=== PATIENT | female | born 1945 | race Caucasian/White ===

== ENCOUNTER 2016-12-25 23:40 | Emergency (ER) | payer MEDICARE, BC ==
--- NOTE | 2016-12-26 00:10 | EDM.PDOC ---
ED HPI GENERAL MEDICAL PROBLEM - General Chief Complaint: Abdominal Pain Stated Complaint: Upper abdominal pain Time Seen by Provider: 12/25/16 23:50 Source of Information: Reports: Patient History Limitations: Reports: No Limitations - History of Present Illness INITIAL COMMENTS - FREE TEXT/NARRATIVE: Patient reports upper abdominal pain after eating since early November. She notes that it only happens after eating, usually 1-2 hours after eating. She tells me that the pain is in the upper abdomen from the right to left side including mid epigastric. Describes it as a pressure. She denies any history of GERD or ulcers. Medical history includes HTN, hypercholesterolemia, stroke in 2008 with residual reduction of peripheral vision to both eyes. She denies [place], cancer, denies any COPD, asthma. She has had kidney stones in the past. No smoking, drinking, or drug use. She denies LOC, chest pain, SOB, no headache, blood in urine or stool. No fever or chills. Onset: Other (chronic since November) Duration: Chronic Location: Reports: Abdomen Quality: Reports: Pressure, Same as Previous Episode Severity: Moderate Worsens with: Reports: Eating Associated Symptoms: Reports: Nausea/Vomiting Upper abdomen, epigastric Pain Score (Numeric/FACES): 3 - Related Data Allergies Allergy/AdvReac Type Severity Reaction Status Date / Time No Known Allergies Allergy Verified 12/09/14 09:49 Home Meds: Home Meds Cholecalciferol (Vitamin D3) [Vitamin D3] 1,000 units PO DAILY 12/01/14 [History ] Lisinopril [Lisinopril] 20 mg PO DAILY 12/01/14 [History] Spironolactone [Aldactone] 75 mg PO DAILY 12/01/14 [History] Social & Family History - Tobacco Use Smoking Status *Q: Never Smoker Second Hand Smoke Exposure: Yes - Recreational Drug Use Recreational Drug Use: No Drug Use in Last 12 Months: No ED ROS GENERAL - Review of Systems Review Of Systems: See Below Constitutional: Reports: No Symptoms HEENT: Reports: No Symptoms Respiratory: Reports: No Symptoms Cardiovascular: Reports: No Symptoms Endocrine: Reports: No Symptoms GI/Abdominal: Reports: Abdominal Pain, Nausea : Reports: No Symptoms Musculoskeletal: Reports: No Symptoms Skin: Reports: No Symptoms Neurological: Reports: No Symptoms Psychiatric: Reports: No Symptoms Hematologic/Lymphatic: Reports: No Symptoms Immunologic: Reports: No Symptoms ED EXAM, GI/ABD - Physical Exam Exam: See Below Exam Limited By: No Limitations General Appearance: Alert, WD/WN, No Apparent Distress Eyes: Bilateral: EOMI Ears: Normal TMs Throat/Mouth: Normal Inspection, Normal Oropharynx Head: Atraumatic, Normocephalic Neck: Normal Inspection, Supple, Non-Tender, Full Range of Motion Respiratory/Chest: No Respiratory Distress, Lungs Clear, Normal Breath Sounds, No Accessory Muscle Use, Chest Non-Tender Cardiovascular: Normal Peripheral Pulses, Regular Rate, Rhythm, No Edema, No Gallop, No Murmur GI/Abdominal: Normal Bowel Sounds, No Organomegaly, No Abnormal Bruit, No Mass, Tenderness Back Exam: Normal Inspection Extremities: Normal Inspection, Normal Range of Motion, Non-Tender, No Pedal Edema Neurological: Alert, Oriented, CN II-XII Intact, Normal Cognition, Normal Gait, Normal Reflexes, No Motor/Sensory Deficits Psychiatric: Normal Affect, Normal Mood Skin Exam: Warm, Dry, Intact, Normal Color, No Rash Lymphatic: No Adenopathy Course - Vital Signs Last Recorded V/S: Last Vital Signs Temp 36.4 C 12/26/16 02:07 Pulse 70 12/26/16 02:07 Resp 16 12/26/16 02:07 BP 166/70 H 12/26/16 02:07 Pulse Ox 97 12/25/16 23:45 - Orders/Labs/Meds Labs: Laboratory Tests 12/25/16 12/26/16 12/26/16 Range/Units 23:50 00:30 00:30 WBC 12.5 H (4.0-10.0) x10^3/uL RBC 4.69 (4.00-5.50) x10^6/uL Hgb 14.4 (12.0-16.0) g/dL Hct 42.5 (33.0-47.0) % MCV 90.6 (78.0-93.0) fL MCH 30.7 (26.0-32.0) pg MCHC 33.9 (32.0-36.0) g/dL RDW Coeff of Ciara 13.5 (10.0-15.0) % Plt Count 243 (130-400) x10^3/uL Neut % (Auto) 78.0 (50.0-80.0) % Lymph % (Auto) 15.5 L (25.0-50.0) % [place] % (Auto) 5.5 (2.0-11.0) % Eos % (Auto) 0.8 (0.0-4.0) % Baso % (Auto) 0.2 (0.2-1.2) % PT 11.0 (10.0-12.8) SEC INR 1.0 L (2.0-3.5) Sodium (136-145) mmol/L Potassium (3.5-5.1) mmol/L Chloride (98-107) mmol/L Carbon Dioxide (21-32) mmol/L BUN (7-18) mg/dL Creatinine (0.55-1.02) mg/dL Est Cr Clr Drug Dosing Estimated GFR (MDRD) Glucose (74-106) mg/dL Calcium (8.5-10.1) mg/dL Corrected Calcium (8.5-10.1) mg/dL Total Bilirubin (0.2-1.0) mg/dL AST (15-37) U/L ALT (14-59) U/L Alkaline Phosphatase (46-116) U/L Creatine Kinase (26-192) U/L Creatine Kinase Index CK-MB (CK-2) Troponin I (<=0.056) ng/mL C-Reactive Protein (<=0.9) mg/dL Total Protein (6.4-8.2) g/dL Albumin (3.4-5.0) g/dL Globulin Albumin/Globulin Ratio Triglycerides (0-149) mg/dL Amylase (25-115) U/L Lipase (73-393) U/L Urine Color Yellow (YELLOW) Urine Appearance Slightly cloudy H (CLEAR) Urine pH 7.5 (5.0-8.0) Ur Specific [place] 1.015 Urine Protein Trace H (NEGATIVE) mg/dL Urine Glucose (UA) Negative (NEGATIVE) mg/dL Urine Ketones Negative (NEGATIVE) mg/dL Urine Occult Blood Negative (NEGATIVE) Urine Nitrite Negative (NEGATIVE) Urine Bilirubin Small H (NEGATIVE) Urine Urobilinogen >=8.0 H (0.2) EU/dL Ur Leukocyte Esterase Negative (NEGATIVE) Urine RBC 0-5 (NOT SEEN) /HPF Urine WBC 0-5 (NOT SEEN) /HPF Ur Squamous Epith Cells Few H (NEGATIVE) /HPF Amorphous Sediment Many Urine Bacteria Few H (NEGATIVE) /HPF Urine Mucus Not seen (NEGATIVE) /LPF 12/26/16 12/26/16 Range/Units 00:30 00:30 WBC (4.0-10.0) x10^3/uL RBC (4.00-5.50) x10^6/uL Hgb (12.0-16.0) g/dL Hct (33.0-47.0) % MCV (78.0-93.0) fL MCH (26.0-32.0) pg MCHC (32.0-36.0) g/dL RDW Coeff of Ciara (10.0-15.0) % Plt Count (130-400) x10^3/uL Neut % (Auto) (50.0-80.0) % Lymph % (Auto) (25.0-50.0) % [place] % (Auto) (2.0-11.0) % Eos % (Auto) (0.0-4.0) % Baso % (Auto) (0.2-1.2) % PT (10.0-12.8) SEC INR (2.0-3.5) Sodium 141 (136-145) mmol/L Potassium 3.8 (3.5-5.1) mmol/L Chloride 105 (98-107) mmol/L Carbon Dioxide 26 (21-32) mmol/L BUN 18 (7-18) mg/dL Creatinine 0.9 (0.55-1.02) mg/dL Est Cr Clr Drug Dosing TNP Estimated GFR (MDRD) > 60 Glucose 171 H (74-106) mg/dL Calcium 9.0 (8.5-10.1) mg/dL Corrected Calcium 9.24 (8.5-10.1) mg/dL Total Bilirubin 0.7 (0.2-1.0) mg/dL AST 496 H (15-37) U/L ALT 501 H (14-59) U/L Alkaline Phosphatase 189 H (46-116) U/L Creatine Kinase 50 (26-192) U/L Creatine Kinase Index TNP CK-MB (CK-2) TNP Troponin I < 0.017 (<=0.056) ng/mL C-Reactive Protein 0.2 (<=0.9) mg/dL Total Protein 7.8 (6.4-8.2) g/dL Albumin 3.7 (3.4-5.0) g/dL Globulin 4.1 Albumin/Globulin Ratio 0.90 Triglycerides 133 (0-149) mg/dL Amylase 2434 H (25-115) U/L Lipase 82955 H (73-393) U/L Urine Color (YELLOW) Urine Appearance (CLEAR) Urine pH (5.0-8.0) Ur Specific [place] Urine Protein (NEGATIVE) mg/dL Urine Glucose (UA) (NEGATIVE) mg/dL Urine Ketones (NEGATIVE) mg/dL Urine Occult Blood (NEGATIVE) Urine Nitrite (NEGATIVE) Urine Bilirubin (NEGATIVE) Urine Urobilinogen (0.2) EU/dL Ur Leukocyte Esterase (NEGATIVE) Urine RBC (NOT SEEN) /HPF Urine WBC (NOT SEEN) /HPF Ur Squamous Epith Cells (NEGATIVE) /HPF Amorphous Sediment Urine Bacteria (NEGATIVE) /HPF Urine Mucus (NEGATIVE) /LPF Meds: Medications Discontinued Medications Generic Name Dose Route Start Last Admin Trade Name Severoq PRN Reason Stop Dose Admin Al Hydroxide/Mg Hydroxide 30 ml 12/26/16 00:16 12/26/16 00:25 Gi Cocktail PO 12/26/16 00:17 30 ml ONETIME ONE Administration Cefazolin Sodium 1 gm 12/26/16 02:59 12/26/16 03:11 Ancef IVPUSH 12/26/16 03:00 1 gm ONETIME ONE Administration Hydromorphone HCl 1 mg 12/26/16 01:53 12/26/16 02:00 Dilaudid IVPUSH 12/26/16 01:54 1 mg ONETIME ONE Administration Sodium Chloride 1,000 mls @ 999 mls/hr 12/26/16 01:19 12/26/16 01:36 Normal Saline IV 12/26/16 02:19 999 mls/hr ONETIME ONE Administration Sodium Chloride 1,000 mls @ 125 mls/hr 12/26/16 02:59 12/26/16 03:15 Normal Saline IV 12/26/16 10:58 125 mls/hr ONETIME ONE Administration Ketorolac Tromethamine 30 mg 12/26/16 01:16 Toradol IM 12/26/16 01:17 ONETIME ONE Ketorolac Tromethamine 15 mg 12/26/16 01:20 12/26/16 01:38 Toradol IVPUSH 12/26/16 01:21 15 mg ONETIME ONE Administration Morphine Sulfate 2 mg 12/26/16 00:54 12/26/16 01:05 Morphine IM 12/26/16 00:55 2 mg ONETIME ONE Administration Ondansetron HCl 4 mg 12/26/16 00:54 12/26/16 01:02 Zofran Odt PO 12/26/16 00:55 4 mg ONETIME ONE Administration Sodium Chloride 10 ml 12/26/16 01:19 Saline Flush FLUSH ASDIRECTED PRN Keep Vein Open - Radiology Interpretation Free Text/Narrative:: Review of CT with Dr. Bhakta, [facility] general surgeon. Advised to transfer to their facility for possible ERCP and gall bladder removal later this week. - Re-Assessments/Exams Free Text/Narrative Re-Assessment/Exam: 12/26/16 02:[address] Mayberry, hospitalist at [facility]. Care accepted, room number given is 1062. Await ambulance for transfer. 1 gram ancef given before transfer. Departure - Departure Time of Disposition: 02:45 Disposition: DC/Tfer to Acute Hospital 02 Condition: Fair Clinical Impression: Cholecystitis, Pancreatitis - Discharge Information Referrals: PCP,Unobtain [Primary Care Provider] - Forms: ED Department Discharge, Interfacility Transfer JARVIS
[2016-12-26] MEDS ORDERED: GI Cocktail Oral Solution 30 ML PO ONE (00:16)
[2016-12-26] MEDS ORDERED: Morphine 2 MG/ML Syringe IM ONE (00:54)
[2016-12-26] MEDS ORDERED: Ondansetron 4 MG Tab.DIS PO ONE (00:54)
[2016-12-26 01:10] LABS: CHLORIDE,CL 105 mmol/L (98-107); SODIUM,NA 141 mmol/L (136-145)
[2016-12-26] MEDS ORDERED: Ketorolac 30 MG/ML SDV IM ONE (01:16)
[2016-12-26] MEDS ORDERED: Sodium Chloride 0.9% 1,000 ML IV ONE ×2 (01:19→02:59)
[2016-12-26] MEDS ORDERED: Sodium Chloride 0.9% 10 ML Syringe FLUSH PRN (01:19)
[2016-12-26] MEDS ORDERED: Ketorolac 15 MG/ML SDV IVPUSH ONE (01:20)
[2016-12-26] MEDS ORDERED: HYDROmorphone 1 MG/ML Syringe IVPUSH ONE (01:53)
[2016-12-26 02:09] VITALS: BP 166/70
[2016-12-26] MEDS ORDERED: ceFAZolin 1 GM Vial IVPUSH ONE (02:59)
== END 2016-12-26 03:40 | disposition short-term general hospital (02) ==
LOC: VM.ED 23:40
DX: K81.9 Cholecystitis, unspecified (principal); K85.90 Acute pancreatitis without necrosis or infection, unspecified; I10 Essential (primary) hypertension; E78.00 Pure hypercholesterolemia, unspecified; Z79.899 Other long term (current) drug therapy; Z87.442 Personal history of urinary calculi
CPT/HCPCS: 36415; 74176; 80053; 81001; 82150; 82550; 83690; 84478; 84484; 85025; 85610; 86140; 96361; 96372; 96374; 96375; 99285; A9270; J0690; J1170; J1885; J2270; J7030

== ENCOUNTER 2017-03-08 07:03 | Emergency (ER) | payer MEDICARE, BC ==
--- NOTE | 2017-03-08 07:18 | EDM.PDOC ---
ED HPI GENERAL MEDICAL PROBLEM - General Chief Complaint: Genitourinary Problem Stated Complaint: URINARY ISSUES PASSING BLOOD Time Seen by Provider: 03/08/17 07:11 Source of Information: Reports: Patient, Family, RN, RN Notes Reviewed History Limitations: Reports: No Limitations - History of Present Illness INITIAL COMMENTS - FREE TEXT/NARRATIVE: Patient presents to the ED at [facility] complaining of dysuria, frequency, and urgency that started around 2am this morning. Patient states she had a UTI about one month ago which was treated with abx and resolved. Patient denies any abdominal or pelvic pain. No fevers or chills. No vaginal discharge or odor. Onset: Today Onset Date: 03/08/17 Onset Time: 02:00 Bladder Pain Score (Numeric/FACES): 5 - Related Data Allergies Allergy/AdvReac Type Severity Reaction Status Date / Time No Known Allergies Allergy Verified 03/08/17 07:14 Home Meds: Home Meds Cholecalciferol (Vitamin D3) [Vitamin D3] 1,000 units PO DAILY 12/01/14 [History ] Lisinopril [Lisinopril] 20 mg PO DAILY 12/01/14 [History] Spironolactone [Aldactone] 75 mg PO DAILY 12/01/14 [History] Nitrofurantoin [place]/Macrocryst [Macrobid] 100 mg PO BID 7 Days #14 cap 03/08/17 [Rx] Past Medical History HEENT History: Reports: Allergic Rhinitis, Impaired Vision Cardiovascular History: Reports: High Cholesterol, Hypertension Genitourinary History: Reports: Renal Calculus Neurological History: Reports: CVA Social & Family History - Tobacco Use Smoking Status *Q: Never Smoker Second Hand Smoke Exposure: Yes - Recreational Drug Use Recreational Drug Use: No Drug Use in Last 12 Months: No ED ROS GENERAL - Review of Systems Review Of Systems: See Below Constitutional: Denies: Fever, Chills, Weakness Respiratory: Denies: Shortness of Breath, Cough Cardiovascular: Denies: Chest Pain, Palpitations GI/Abdominal: Denies: Abdominal Pain, Nausea, Vomiting : Reports: Dysuria, Frequency, Hematuria, Urgency Skin: Reports: No Symptoms Neurological: Reports: No Symptoms ED EXAM, RENAL/ - Physical Exam Exam: See Below Exam Limited By: No Limitations General Appearance: Alert, No Apparent Distress Respiratory/Chest: No Respiratory Distress, Lungs Clear, Normal Breath Sounds Cardiovascular: Regular Rate, Rhythm GI/Abdominal: Normal Bowel Sounds, Soft, Non-Tender (Female) Exam: Deferred Neurological: Alert, Oriented Skin Exam: Warm, Dry, Intact, Normal Color, No Rash Course - Vital Signs Last Recorded V/S: Last Vital Signs Temp 35.6 C 03/08/17 07:05 Pulse 72 03/08/17 07:05 Resp 16 03/08/17 07:05 BP 182/76 H 03/08/17 07:05 Pulse Ox - Orders/Labs/Meds Labs: Laboratory Tests 03/08/17 Range/Units 07:10 Urine Color Yellow (YELLOW) Urine Appearance Clear (CLEAR) Urine pH 6.5 (5.0-8.0) Ur Specific [place] 1.025 Urine Protein 100 H (NEGATIVE) mg/dL Urine Glucose (UA) Negative (NEGATIVE) mg/dL Urine Ketones Negative (NEGATIVE) mg/dL Urine Occult Blood Large H (NEGATIVE) Urine Nitrite Positive H (NEGATIVE) Urine Bilirubin Negative (NEGATIVE) Urine Urobilinogen 1.0 (0.2) EU/dL Ur Leukocyte Esterase Large H (NEGATIVE) Urine RBC See note (NOT SEEN) /HPF Urine WBC Packed (NOT SEEN) /HPF Ur Squamous Epith Cells Not seen (NEGATIVE) /HPF Urine Bacteria Moderate H (NEGATIVE) /HPF Urine Mucus Not seen (NEGATIVE) /LPF Departure - Departure Time of Disposition: 07:45 Disposition: Home, Self-Care 01 Condition: Good Clinical Impression: Urinary tract infection Qualifiers: Urinary tract infection type: acute cystitis Hematuria presence: with hematuria Qualified Code(s): N30.01 - Acute cystitis with hematuria - Discharge Information Prescriptions: Nitrofurantoin [place]/Macrocryst [Macrobid] 100 mg PO BID 7 Days #14 cap Instructions: Urinary Tract Infection, Adult, [id number] Referrals: Yareli Gunn MD [Primary Care Provider] - Forms: ED Department Discharge Additional Instructions: 1. Stay well hydrated and rest 2. May use OTC Cystex or Azo for bladder discomfort 3. May alternate Tylenol/Advil as needed 4. Take medications for the full coarse, even if you are feeling better 5. See your Primary as symptoms warrant - Problem List Review Problem List Initiated/Reviewed/Updated: Yes
[2017-03-08 07:40] VITALS: BP 182/76
== END 2017-03-08 08:05 | disposition home or self-care (01) ==
LOC: VM.ED 07:03
DX: N30.01 Acute cystitis with hematuria (principal); I10 Essential (primary) hypertension; E78.00 Pure hypercholesterolemia, unspecified; Z87.442 Personal history of urinary calculi; Z86.73 Personal history of transient ischemic attack (TIA), and cerebral infarction without residual deficits; Z79.899 Other long term (current) drug therapy
CPT/HCPCS: 81001; 99283; 99283-GF

== ENCOUNTER 2024-10-05 08:04 | Emergency (ER) | payer MEDICARE, BC ==
[2024-10-05 08:19] LABS: APPEARANCE,URINE CLEAR (CLEAR); BILIRUBIN,URINE NEGATIVE (NEGATIVE); COLOR,URINE YELLOW (YELLOW); GLUCOSE,URINE 500 mg/dL (NEGATIVE); KETONES,URINE NEGATIVE (NEGATIVE); LEUKOCYTE ESTERASE,URINE NEGATIVE (NEGATIVE); NITRITE,URINE NEGATIVE (NEGATIVE); OCCULT BLOOD,URINE NEGATIVE (NEGATIVE); PH,URINE 5.5 (5.0-8.0); PROTEIN,URINE TRACE mg/dL (NEGATIVE); UROBILINOGEN,URINE 0.2 EU/dL (0.2)
[2024-10-05 08:32] LABS: BACTERIA,URINE RARE /HPF (NOT SEEN); MUCUS,URINE OCCASIONAL /LPF (NOT SEEN); RBC,URINE 0-5 /HPF (NOT SEEN); SQUAMOUS EPITHELIAL CELLS,UR MODERATE /HPF (NOT SEEN); WBC,URINE 0-5 /HPF (NOT SEEN)
[2024-10-05 08:53] VITALS: BP 148/75; PULSE 65
== END 2024-10-05 08:48 | disposition home or self-care (01) ==
LOC: VM.ED 08:04
DX: N76.0 Acute vaginitis (principal); I10 Essential (primary) hypertension; E78.00 Pure hypercholesterolemia, unspecified; E66.9 Obesity, unspecified; Z86.73 Personal history of transient ischemic attack (TIA), and cerebral infarction without residual deficits; Z79.899 Other long term (current) drug therapy; Z79.84 Long term (current) use of oral hypoglycemic drugs
CPT/HCPCS: 81001; 99283